=== PATIENT | male | born 1965 | race Caucasian/White ===

== ENCOUNTER 2024-10-19 10:05 | Outpatient (REF) | payer OTHER, SELFPAY ==
--- OUTSIDE RECORDS SUMMARY | 2024-10-19 12:18 | XMS_ITS | Encounter Summary ---
Author Organization [facility] Address [address] [address] Phone Care Team Providers Care Emergency Medical Technician/Driver Name Role Phone Carline Anhtony MD Primary Care Provider [phone] Encounter Details Date Type Department Care Team (Late st Contact Info) Description 05/01/2023 Procedure [facility], Ct Scan - [address] [address] Social History Tobacco Use Types Packs/Day Years Used Date Smoking Tobacco: Never Assessed Education Answer Date Recorded Are you interested in more education? Not on silviano e 05/01/2023 Are you concerned about learning? Not on file 05/01/2023 No 05/01/2023 No 05/01/2023 Digital Access Answer Date Recorded No 05/01/2023 No 05/01/2023 Reliable internet access at home? Not on file 05/01/2023 Device with a working camera? Not on file Intimate Partner Violence Answer Date R ecorded Are you denied basic needs s uch as food, clothing, or medical care? No 05/01/2023 In the past 12 months have y ou been in a relationship with a person who hurts, threatens, or tries to control you? No 05/01/2023 Are you denied basic needs s uch as food, clothing, or medical care? No 05/01/2023 In the past 12 months have y ou been in a relationship with a person who hurts, threatens, or tries to control you? No 05/01/2023 Sex and Gender Information Value Date Recorded Sex Assigned at Male 05/01/2023 7:09 PM EDT Legal Sex Male 6:19 PM EDT Gender Identity Male 05/01/2023 7:09 PM EDT Sexual Orientation Straight 05/01/2023 7: 09 PM EDT documented as of this encounter Functional Status * Calculated C-SSRS Risk Score (Lifetime/Recent) Answer Date of Assessment Author No Risk Indicated 05/01/2023 6:26 PM EDT Hortensia Kwok RN * [place] Suicide Severity Rating Scale (Screener/Recent Self-Report) Question Answer Date of Assessment Author 1. Wish to be (Past 1 Month) No 024 6:26 PM EDT Hortensia Kwok RN 2. Non-Specific Active Suici rhona Thoughts (Past 1 Month) No 05/01/2023 6:26 PM EDT Hortensia Kwok RN 6. Suicidal Behavior (Lifetime) No 4 6:26 PM EDT Hortensia Kwok RN documented as of this encounter Plan of Treatment Not on file documented as of this encounter Visit Diagnoses Not on filedocumented in this encounter Care Teams Emergency Medical Technician/Driver Relationship Specialty Start Date End Date Carline Anthony MD [address] [place] [id number] PCP - General Internal Medicine 05/01/23 documented as of this encounter Additional Source Comments The information contained in this document represents components of the legal health record. It is not the complete legal health record.[facility]
--- OUTSIDE RECORDS SUMMARY | 2024-10-19 12:18 | XMS_ITS | Clinical Summary ---
Author Organization [facility] Address [address] [address] Phone Care Team Providers Care Farm Equipment Operator Name Role Phone Carline Anthony MD Primary Care Provider [phone] Allergies No known active allergies Medications tamsulosin (FLOMAX) 0.4 mg Cap Take 0.4 mg by mouth daily. Active oxyCODONE 5 MG immediate release tablet Take 1 tablet (5 mg total) by mouth every 4 (four) hours as needed. Partial fill ok 10 tablet 05/01/2023 Active Social History Tobacco Use Types Packs/Day Years [...] Orientation Straight 05/01/2023 7: 09 PM EDT Last Filed Vital Signs Vital Sign Reading Time Taken Comments Blood Pressure 186/109 05/01/2023 9:00 PM EDT Pulse 71 05/01/2023 9:00 PM EDT Temperature 37.7 C (99.9 F) 05/01/2023 9:00 PM EDT Respiratory Rate 18 05/01/2023 9:00 PM EDT Oxygen Saturation 97% 05/01/2023 9:00 PM EDT Inhaled Oxygen Concentration - - Weight 95.3 kg (210 lb) 05/01/2023 6:28 PM EDT Height 170.2 cm (5' 7 ) 05/01/2023 6:28 PM EDT Body Mass Index 32.89 05/01/2023 6:28 PM EDT Plan of Treatment Health Maintenance Due Date Last Done Comments Adult Td,Tdap Booster 1964 LIPID PANEL 1964 DEPRESSION SCREENING 1976 SMOKING Hx and SMOKELESS TOB ACCO SCREENING 1977 HEPATITIS C SCREENING 1982 HIV ONE-TIME SCREENING (18-6 5 YEARS) 1982 SCREENING FOR DIABETES 1999 COLOGUARD 2009 COLONOSCOPY 2009 COLORECTAL CANCER SCREENING 2009 FIT TEST 2009 FOBT 2009 SIGMOIDOSCOPY 2009 VIRTUAL COLONOSCOPY 2009 PNEUMOCOCCAL VACCINES (50+ y ears) (1 of 1 - PCV) 2014 ZOSTER VACCINES (1 of 2) 2014 INFLUENZA VACCINE (#1) 2024 COVID-19 VACCINE ( - 2023-2 5 season) 2024 RSV VACCINE (1 - 1-dose 75+ series) 2039 HEPATITIS A VACCINES Aged Out No long er eligible based on patient's age to complete this topic HIB VACCINES Aged Out No longer eligi ble based on patient's age to complete this topic MENINGOCOCCAL VACCINES (ACWY) Aged Out No longer eligible based on patient's age to complete this topic MENINGOCOCCAL VACCINES (B) Aged Out N o longer eligible based on patient's age to complete this topic Medical Devices Not on file Insurance [facility] Care Teams Farm Equipment Operator Relationship Specialty Start Date End Date Carline Anthony MD [address] [place] [phone] PCP - General Internal Medicine 05/01/23 Additional Source Comments The information contained in this document represents components of the legal health record. It is not the complete legal health record.[facility]
[2024-10-19 13:28] LABS: Hemoglobin A1C 207.8538 umol/L; Total Hemoglobin (HGBA1C) 3920.2878 umol/L
[2024-10-19 13:48] LABS: Alanine Aminotransferase 36 U/L (0-40); Albumin Level 4.6 g/dL (3.5-5.0); Alkaline Phosphatase 82 U/L (39-117); Anion Gap 14 (12-20); Aspartate Amino Transferase 25 U/L (5-37); Blood Urea Nitrogen 18 mg/dL (9-16); Calcium 9.3 mg/dL (8.4-10.2); Carbon Dioxide 27 mmol/L (22-29); Chloride 107 mmol/L (96-108); Cholesterol 205 mg/dL (<200); Estimated Glomerular Filt Rate > 60; HDL Cholesterol 53 mg/dL (>40); Potassium 4.8 mmol/L (3.3-5.1); Sodium 143 mmol/L (135-145); Total Protein 7.2 g/dL (6.5-8.0); Triglycerides 181 mg/dL (<150)
== END 2024-10-19 10:06 | disposition home or self-care (01) ==
LOC: HO.10HDL 10:05
PROVIDERS: Visit Provider Internal Medicine
DX: E11.9 Type 2 diabetes mellitus without complications (principal); E78.00 Pure hypercholesterolemia, unspecified; N40.0 Benign prostatic hyperplasia without lower urinary tract symptoms; Z72.0 Tobacco use
CPT/HCPCS: 36415; 80053; 80061; 83036